=== PATIENT | female | born 1985 | race African-American/Black ===

== ENCOUNTER 2019-10-25 19:47 | Emergency (ER) | payer MEDICAID, OTHER ==
[~2019-10-25] VITALS: Ht 162.6 cm; Wt 90.7 kg
[2019-10-25 20:01] VITALS: BP 139/98
--- NOTE | 2019-10-25 20:02 | NUR ---
PT BIBRA C/O MIDSTERNAL CHEST PAIN RADIATING TO THE R ARM @1900 WHEN SHE STARTED FEELING ANXIOUS. 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 PT AAOX4, VSS, RR EVEN AND UNLABORED ON RA W/NAD NOTED.
--- NOTE | 2019-10-25 20:05 | NUR ---
PT CONNECTED TO THE [facility] AND POX
--- NOTE | 2019-10-25 20:28 | NUR ---
DR HDEZ AT BEDSIDE
[2019-10-25] MEDS ORDERED: LORAZEPAM 1 MG TABLET PO ONE ×2 (20:30→21:30)
[2019-10-25] MEDS ORDERED: KETOROLAC TROMETHAMINE INJ 60 MG/2 ML VIAL IM ONE (20:30)
[2019-10-25] MEDS ORDERED: KETOROLAC TROMETHAMINE INJ 30 MG/ML VIAL ONE (20:40)
[2019-10-25] MEDS ORDERED: LORAZEPAM INJ 2 MG/ML VIAL ONE (20:41)
[2019-10-25] MEDS ORDERED: LORAZEPAM INJ 2 MG/ML VIAL IM ONE (21:00)
--- NOTE | 2019-10-25 21:13 | NUR ---
RADIOLOGY AT BEDSIDE FOR CXR
[2019-10-25] MEDS ORDERED: LORAZEPAM 1 MG TABLET ONE (21:26)
[2019-10-25] MEDS ORDERED: ONDANSETRON 4 MG TAB.RAPDIS ONE ×2 (21:46→21:58)
[2019-10-25] MEDS ORDERED: ONDANSETRON 4 MG TAB.RAPDIS SL ONE (22:00)
--- NOTE | 2019-10-25 22:02 | NUR ---
Patient discharged to home in stable condition. Written and verbal after care instructions given. Patient verbalizes understanding of instruction.
== END 2019-10-25 22:04 | disposition home or self-care (01) ==
LOC: ER 19:49
DX: R07.89 Other chest pain (principal); F41.9 Anxiety disorder, unspecified; J45.909 Unspecified asthma, uncomplicated; Z60.2 Problems related to living alone
CPT/HCPCS: 71045; 84703; 93005; 96372 ×2; 99285; J1885; J2060; Q0162

== ENCOUNTER 2020-12-12 17:15 | Emergency (ER) | payer MEDICAID ==
[~2020-12-12] VITALS: Ht 162.6 cm; Wt 89.4 kg
--- NOTE | 2020-12-12 17:20 | NUR ---
BIBRA 88 FROM HOME C/O GENERAL BODYACHES X YESTERDAY, N/V STARTED 3 HOURS AGO. PATIENT A/OX4, BREATHING EVEN AND UNLABORED, NO SOB NOTED. NEEDS ATTENDED.
[2020-12-12] MEDS ORDERED: ONDANSETRON HCL/PF 4 MG/2 ML VIAL ONE (18:18)
[2020-12-12 18:30] LABS: BASOPHILS % (AUTO) 0.6 % (0.0-2.0); EOSINOPHILS % (AUTO) 5.2 % (0.0-6.0); HEMATOCRIT 36 % (33-45); HEMOGLOBIN 11.6 g/dL (11.5-14.8); LYMPHOCYTES # (AUTO) 1.7 K/uL (0.8-4.8); LYMPHOCYTES % (AUTO) 23.2 % (20.0-44.0); MEAN CORPUSCULAR HGB CONC 32 g/dl (31.0-36.0); MEAN CORPUSCULAR VOLUME 86 fL (82-100); MONOCYTES # (AUTO) 0.4 K/uL (0.1-1.30); MONOCYTES % (AUTO) 5.8 % (2.0-12.0); NEUTROPHILS # (AUTO) 4.7 K/uL (1.8-8.9); NEUTROPHILS % (AUTO) 65.2 % (43.0-81.0); PLATELET COUNT (AUTO) 296 K/uL (150-450); RED BLOOD CELL COUNT(AUTO) 4.17 MIL/uL (4.0-5.2); WHITE BLOOD COUNT (AUTO) 7.1 K/uL (4.3-11.0)
[2020-12-12] MEDS: ONDANSETRON HCL/PF 4 MG/2 ML VIAL IVP ONE (18:32)
[2020-12-12] MEDS: IV NS 0.9% 1,000 ML BAG IV ONE (18:32)
[2020-12-12 18:40] LABS: CALCIUM, SERUM 8.1 mg/dL (8.5-10.1); CREATININE 0.7 mg/dL (0.6-1.3); POTASSIUM 4.1 mmol/L (3.5-5.1)
[2020-12-12 18:49] LABS: ALBUMIN 3.5 g/dL (3.4-5.0); BILIRUBIN,DIRECT 0.1 mg/dL (0.0-0.2); BILIRUBIN,TOTAL 0.6 mg/dL (0.2-1.0); TOTAL PROTEIN, SERUM 7.6 g/dL (6.4-8.2)
[2020-12-12 19:04] LABS: BILIRUBIN,URINE Negative (NEGATIVE); COLOR,URINE YELLOW (YELLOW); LEUKOCYTE ESTERASE ,URINE Negative (NEGATIVE); NITRITE, URINE Positive (NEGATIVE); PH,URINE 6.5 (5.0-8.0); PROTEIN,URINE Trace mg/dl (NEGATIVE); UGLUCOSE Negative (NEGATIVE)
[2020-12-12 19:25] LABS: RBC,URINE 0-2 /HPF (0-2); WBC,URINE 0-2 /HPF (0-3)
[2020-12-12 19:26] LABS: BACTERIA,URINE Moderate /HPF (None Seen); SQUAMOUS EPITHELIAL CELL,UR Moderate /HPF (None Seen)
[2020-12-12] MEDS ORDERED: KETOROLAC TROMETHAMINE INJ 30 MG/ML VIAL ONE (19:29)
[2020-12-12] MEDS ORDERED: CEFTRIAXONE 1GM BAG (ER ONLY) 50 ML IV ONE (19:29)
[2020-12-12] MEDS: CEFTRIAXONE 1GM BAG (ER ONLY) 1 GM/50 ML PIGGYBACK IV ONE (19:35)
[2020-12-12] MEDS: KETOROLAC TROMETHAMINE INJ 30 MG/ML VIAL IV ONE (19:35)
[2020-12-12] MEDS ORDERED: IBUP-1957 PO (19:46)
[2020-12-12] MEDS ORDERED: CEPH500C2 PO (19:46)
[2020-12-12] MEDS ORDERED: ONDA4TAB11 PO (19:46)
--- NOTE | 2020-12-12 19:51 | NUR ---
Patient discharged to home in stable condition. Written and verbal after care instructions given. Patient verbalizes understanding of instruction and RX. Pt ambulated out of ED. VSS.
--- NOTE | 2020-12-12 19:51 | NUR ---
IV removed. Catheter intact and site benign. Pressure and 4x4 applied to site. No bleeding noted.
[2020-12-12 19:52] VITALS: BP 121/70
== END 2020-12-12 19:56 | disposition home or self-care (01) ==
LOC: ER 17:19
DX: N39.0 Urinary tract infection, site not specified (principal); M54.9 Dorsalgia, unspecified; F41.9 Anxiety disorder, unspecified; F32.9 Major depressive disorder, single episode, unspecified; G89.29 Other chronic pain; J45.909 Unspecified asthma, uncomplicated; Z60.2 Problems related to living alone; Z79.899 Other long term (current) drug therapy
CPT/HCPCS: 36415; 80048; 80076; 81001; 83690; 84703; 85025; 87086; 96361; 96365; 96375; 99284; J0696; J1885; J2405; J7030